=== PATIENT | female | born 1975 | race Caucasian/White ===

== ENCOUNTER 2017-09-20 09:45 | Emergency (ER) | payer OTHER ==
[2017-09-20] MEDS: PSEUDOEPHEDRINE 30 MG TAB PO (11:01)
== END 2017-09-20 12:18 ==
LOC: E/R 09:45
DX: Z02.89 Encounter for other administrative examinations (principal); J01.10 Acute frontal sinusitis, unspecified
CPT/HCPCS: 71045; 99283-25